=== PATIENT | female | born 1960 | race Caucasian/White ===

== ENCOUNTER → 2020-10-26 | Outpatient (CLI) | payer OTHER ==
[~2020-10-26] MED LIST: IOHEXOL 300 MG/ML 100ML VIAL. IV ONE
--- NOTE | 2020-10-26 13:26 | KCIC ---
CT of the abdomen and pelvis with contrast 10/26/2020 1:18 PM Indication: Reason: Crohn's, LLQ discomfort. / Spl. Instructions: 89mL Omni 300 / History: Comparison study: None Technique: Multidetector CT imaging of the abdomen and pelvis was performed following the administrat ion of IV contrast. Findings: Visualized lung bases demonstrate no acute abnormality. There is a 8 mm low-density lesion posterior right liver with attenuation characteristics consistent with a small hepatic cyst. The live r is otherwise unremarkable. The adrenal glands are unremarkable. Right kidney is unremarkable. There is a 5 mm hypodense lesion inferior right kidney, likely a small cyst, but too small to ultimately c haracterize. Spleen is unremarkable. Pancreas is unremarkable. There is no bowel obstruction. Very mi ld bowel wall thickening involving the sigmoid colon and rectum appears to be present. There is mild prominence of the bowel wall in the descending colon and proximal sigmoid colon without appears to be fat within the wall. Nonspecific finding that is often associated with inflammatory bowel disease. T he appendix is unremarkable. Bladder is unremarkable. No free fluid or free air is seen in the abdome n or pelvis.No evidence of acute osseous abnormality is seen. IMPRESSION: Mild thickening of the distal colonic and rectal wall. Mild inflammatory change secondary to inflammatory bowel disease is possible. Bowel thickening involving the more proximal colon with a ssociated intramural fat is seen, which while nonspecific, is often associated with inflammatory zen l disease. CT DOSING PQRS STATEMENT: One or more of the following individualized dose reduction techniques were utilized for this examinat ion: 1. Automated exposure control 2. Adjustment of the mA and/or kV according to patient size 3. Use of iterative reconstruction technique Electronically signed by: Frank Elliott MD (10/26/2020 1:23 PM) [id number]
== END ==
LOC: KCIC CT 09:23
PROVIDERS: ATTEND Physician Assistant
DX: K63.89 Other specified diseases of intestine (principal); N28.89 Other specified disorders of kidney and ureter; K76.9 Liver disease, unspecified; K50.90 Crohn's disease, unspecified, without complications
CPT/HCPCS: 74177; Q9967